=== PATIENT | male | born 1985 | race Caucasian/White ===

== ENCOUNTER 2017-03-24 16:57 | Emergency (ER) | payer BC ==
[2017-03-24 17:17] VITALS: TEMP 97.7
[2017-03-24 17:58] LABS: ADD DIFF? NO; ADD MORPH? NO; ADD SCAN? NO; ATYPICAL LYMPHOCYTE FLAG 10 (0-99); FRAGMENT RBC FLAG 0 (0-99); HEMATOCRIT 43.1 % (40.0-51.0); HEMOGLOBIN 15.2 g/dL (13.7-17.5); LEFT SHIFT FLG 0 (0-99); LIPEMIA HEMOLYSIS FLAG 90 (0-99); MEAN CELL HEMOGLOBIN 32.6 pg (27.9-34.1); MEAN CELL HEMOGLOBIN CONCENTR. 35.3 g/dL (32.4-36.7); MEAN CELL VOLUME 92.5 fL (81.5-99.8); MEAN PLATELET VOLUME 10.5 fL (8.7-11.7); PLATELET CLUMPS FLAG 0 (0-99); PLATELET COUNT 222 10^3/uL (150-400); RED BLOOD CELL COUNT 4.66 10^6/uL (4.40-6.38); RED CELL DISTRIBUTION WIDTH 12.2 % (11.5-15.2)
[2017-03-24 18:15] LABS: ALANINE AMINOTRANSFERASE 39 IU/L (21-72); ALBUMIN 4.3 g/dL (3.5-5.0); ALKALINE PHOSPHATASE 54 IU/L (38-126); ANION GAP 16 mEq/L (8-16); ASPARTATE AMINOTRANSFERASE 27 IU/L (17-59); BILIRUBIN,TOTAL 0.9 mg/dL (0.1-1.4); CALCIUM 9.4 mg/dL (8.5-10.4); CARBON DIOXIDE 27 mEq/l (22-31); CHLORIDE 98 mEq/L (97-110); CREATININE 0.8 mg/dL (0.7-1.3); GLOMERULAR FILTRATION RATE > 60; GLUCOSE 85 mg/dL (70-100); POTASSIUM 3.8 mEq/L (3.5-5.2); SODIUM 141 mEq/L (134-144); TOTAL PROTEIN 7.8 g/dL (6.3-8.2)
--- NOTE | 2017-03-24 18:30 | EDPHY ---
H & P Stated Complaint: Worried about GIB Time Seen by Provider: 03/24/17 17:34 HPI/ROS: This patient complains of upper abdominal pain for the past 2 weeks that is episodic. He describes the intensity has moderate typically 4 to 5/10 when it does occur. He had it shortly prior to arrival but is now nearly resolved and present primarily in the left side upper more than lower belly. The symptoms increased with food particularly with wheat and with wheat he has associated diarrhea. He describes some intermittent burning pain as well and his belly in the same region and a hot feeling and slight lightheadedness. He reports some low-grade subjective fevers associated with him symptoms but has not checked his temperature at home. Also states concern over potential GI bleed but he cannot explain why he is particularly concerned about this. ROS: Constitutional: No fevers chills. No significant fatigue. HEENT: No cold symptoms, sore throat or other Pulmonary: No cough or shortness of breath. Cardiovascular: No chest pain. No heart palpitations. No calf swelling or pain. No pulsatile belly pain GI: No dark tarry stools or bloody stools. No nausea or vomiting. : No testicular pain. No urethral discharge. No dysuria. Musculoskeletal: No complaints Integumentary: No rash or other complaints Endocrine: No polyuria polydipsia or blurred vision 10 point ROS is otherwise negative Source: Patient Exam Limitations: No limitations - Personal History Current Tetanus/Diphtheria Vaccine: No Current Tetanus Diphtheria and Acellular Pertussis (TDAP): No - Medical/Surgical History PMH: Otherwise healthy Hx Asthma: No Hx Chronic Respiratory Disease: No Hx Diabetes: No Hx Cardiac Disease: No Hx Renal Disease: No Hx Cirrhosis: No Hx Alcoholism: No Hx HIV/AIDS: No Hx Splenectomy or Spleen Trauma: No Other PMH: L wrist surgery. Pt states has some undiagnosed inflammatory process for the last year since 2016 - Family History Significant Family History: No pertinent family hx - Social History Smoking Status: Heavy smoker Alcohol Use: Rarely Drug Use: Marijuana (He reports rare marijuana use.) - Physical Exam Exam: General Appearance: Alert, no distress. Eyes: Pupils equal and round no pallor or injection. ENT, Mouth: Mucous membranes moist. Respiratory: There are no retractions, lungs are clear to auscultation. Cardiovascular: Regular rate and rhythm. Gastrointestinal: Normoactive bowel sounds with minimal left upper quadrant tenderness but no splenomegaly : No evidence of inguinal hernia. Testicles are nontender nonswollen. Circumcised penis with no urethral discharge Rectal exam: Small external hemorrhoid without evidence of thrombosis or bleeding stool that is Hemoccult negative. No prostatic swelling is appreciated no prostatic tenderness. Neurological: GCS 15 with no focal deficits appreciated. Skin: Warm and dry, no rashes. Musculoskeletal: Neck is supple nontender. Extremities are symmetrical, full range of motion. Psychiatric: Mildly anxious. Otherwise mood and affect are normal DIFFERENTIAL DIAGNOSIS: After history and physical exam differential diagnosis was considered for food intolerance, gluten intolerance, diverticulitis, gastritis, hepatitis, pancreatitis Constitutional: Initial Vital Signs Temperature (C) 36.5 C 03/24/17 17:14 Heart Rate 50 L 03/24/17 17:14 Respiratory Rate 14 03/24/17 17:14 Blood Pressure 120/80 03/24/17 17:14 O2 Sat (%) 94 03/24/17 17:14 O2 Delivery Mode Room Air Allergies/Adverse Reactions: acetaminophen [From Lortab] Allergy (Verified 03/24/17 17:17) Itching hydrocodone bitartrate [From Lortab] Allergy (Verified 03/24/17 17:17) Itching wheat Allergy (Verified 03/24/17 17:17) Home Medications: Medication Instructions Recorded HYOSCYAMINE SULFATE [LEVSIN-SL] 0.125 - 0.25 mg SL Q6 PRN #20 03/24/17 [email or web address] Medical Decision Making ED Course/Re-evaluation: Patient's symptoms resolved after exam an phlebotomy. I reviewed his normal labs with the patient-normal CBC, comp metabolic panel and Hemoccult negative stool. He has no urinary symptoms. I suspect the symptoms are attributable to gluten sensitivity your intolerance I counseled regarding this. Will provide Levsin for cramping discomfort if needed. I encouraged him to follow up with Gastroenterology if he has any ongoing symptoms despite the treatment plan for further evaluation. - Data Points Laboratory Results: Laboratory Results 03/24/17 17:50 03/24/17 17:50 03/24/17 03/24/17 03/24/17 17:55 17:50 17:50 WBC 4.19 10^3/uL 10^3/uL (3.80-9.50) RBC 4.66 10^6/uL 10^6/uL (4.40-6.38) Hgb 15.2 g/dL g/dL (13.7-17.5) Hct 43.1 % % (40.0-51.0) MCV 92.5 fL fL (81.5-99.8) MCH 32.6 pg pg (27.9-34.1) MCHC 35.3 g/dL g/dL (32.4-36.7) RDW 12.2 % % (11.5-15.2) Plt Count 222 10^3/uL 10^3/uL (150-400) MPV 10.5 fL fL (8.7-11.7) Neut % (Auto) 64.2 % % (39.3-74.2) Lymph % (Auto) 23.2 % % (15.0-45.0) [place] % (Auto) 10.0 % % (4.5-13.0) Eos % (Auto) 1.9 % % (0.6-7.6) Baso % (Auto) 0.7 % % (0.3-1.7) Nucleat RBC Rel Count 0.0 % % (0.0-0.2) Absolute Neuts (auto) 2.69 10^3/uL 10^3/uL (1.70-6.50) Absolute Lymphs (auto) 0.97 10^3/uL L 10^3/uL (1.00-3.00) Absolute Monos (auto) 0.42 10^3/uL 10^3/uL (0.30-0.80) Absolute Eos (auto) 0.08 10^3/uL 10^3/uL (0.03-0.40) Absolute Basos (auto) 0.03 10^3/uL 10^3/uL (0.02-0.10) Absolute Nucleated RBC 0.00 10^3/uL 10^3/uL (0-0.01) Immature Gran % 0.0 % % (0.0-1.1) Immature Gran # 0.00 10^3/uL 10^3/uL (0.00-0.10) Sodium 141 mEq/L mEq/L (134-144) Potassium 3.8 mEq/L mEq/L (3.5-5.2) Chloride 98 mEq/L mEq/L (97-110) Carbon Dioxide 27 mEq/l mEq/l (22-31) Anion Gap 16 mEq/L mEq/L (8-16) BUN 15 mg/dL mg/dL (7-23) Creatinine 0.8 mg/dL mg/dL (0.7-1.3) Estimated GFR > 60 Glucose 85 mg/dL mg/dL (70-100) Calcium 9.4 mg/dL mg/dL (8.5-10.4) Total Bilirubin 0.9 mg/dL mg/dL (0.1-1.4) AST 27 IU/L IU/L (17-59) ALT 39 IU/L IU/L (21-72) Alkaline Phosphatase 54 IU/L IU/L (38-126) Total Protein 7.8 g/dL g/dL (6.3-8.2) Albumin 4.3 g/dL g/dL (3.5-5.0) Stool Occult Bld Scrn NEGATIVE (NEGATIVE) Departure - Departure Disposition: Home, Routine, Self-Care Clinical Impression: Upper abdominal pain Condition: Good Instructions: Acute Abdominal Pain (ED) Additional Instructions: Diagnosis: Upper abdominal pain Your labs today are normal any have no blood in her stool. Plan: Avoid wheat and we related per food products Levsin if needed for abdominal cramping If you have any ongoing symptoms despite the treatment plan, follow up with Dr. Osborn-manager completions. Referrals: Clifford Maloney [Primary Care Provider] - As per Instructions Kal Osborn MD [[facility] [place] Primary Care Provider] - As per Instructions Prescriptions: HYOSCYAMINE SULFATE [LEVSIN-SL] 0.125 - 0.25 mg SL Q6 PRN #20 tab.subl PRN Reason: abdominal cramping
[2017-03-24 18:37] VITALS: BP 118/80; PULSE 78; RESP 18; O2SAT 97
== END 2017-03-24 18:36 | disposition home or self-care (01) ==
LOC: CED 16:57
DX: R10.10 Upper abdominal pain, unspecified (principal); F17.200 Nicotine dependence, unspecified, uncomplicated
CPT/HCPCS: 80053-PO; 82270-PO; 85025-PO

== ENCOUNTER → 2017-06-23 | Outpatient (CLI) | payer BC | LOC: FIMAGING 10:35 | PROVIDERS: ATTEND Family Medicine | DX: M79.642 Pain in left hand (principal); M79.645 Pain in left finger(s) ==

== ENCOUNTER → 2018-09-18 | Outpatient (CLI) | payer BC | LOC: FIMAGING 10:07 | PROVIDERS: ATTEND Family Medicine | DX: M62.08 Separation of muscle (nontraumatic), other site (principal) ==

== ENCOUNTER → 2018-11-25 | Outpatient (CLI) | payer BC | LOC: FLAB 15:07 | PROVIDERS: ATTEND Family Medicine | DX: M54.12 Radiculopathy, cervical region (principal); M25.512 Pain in left shoulder; G25.89 Other specified extrapyramidal and movement disorders ==

== ENCOUNTER 2019-01-06 14:03 | Emergency (ER) | payer BC ==
--- NOTE | 2019-01-06 14:32 | EDPHY ---
General Time Seen by Provider: 01/06/19 14:31 Narrative: CLINICAL IMPRESSION: Anxiety, near syncope, shortness of breath ASSESSMENT/PLAN: Patient is a 33-year-old male with a significant medical history of anxiety who presents with a single episode of near syncope, anxiety and shortness of breath. Patient is afebrile, he is anxious appearing however not toxic- appearing. Vital signs reviewed, mildly tachycardic on arrival. BGL with no evidence of hypoglycemia. CBC with no evidence of anemia or infectious process. BMP with no metabolic abnormalities or evidence of renal insufficiency. ECG with no evidence if bradycardia, sinus pause, SVT or other conduction defect- reviewed by myself and Dr. Coleman. Negative orthostatic hypotension while in the ED. In light of a recent orthopedic surgery, considered pulmonary embolus. Troponin 0. D-dimer was negative. Patient was standing for prolonged period in a warm environment, this is his 1st increased activity since his surgery, I suspect combination of mild deconditioning, underlying anxiety and vasovagal response. There were no findings to suggest sepsis, pulmonary embolism, vascular disease, CHF, arrhythmia (WPW, Bruggada Syndrome, prolonged QT, ventricular arrhythmia, SVT, bradyarrhythmia, or cardiac outflow obstruction- no murmur and not exertional in nature). There were no red flag symptoms, specifically, not exertional onset, no chest pain, low back pain, palpitations, severe headache, focal neurologic deficits, diplopia, ataxia, or dysarthria. I have a low clinical suspicion for other central nervous system etiology. Patient was given IV fluids and Ativan with improvement of his symptoms in the emergency department, he was very reassured by his findings. On re-examination patient with grossly normal neurological exam, able to ambulate without difficulty and with no complaints. Patient is well established with his PCP and will schedule a follow-up appointment. Strict return precautions discussed- patient will return for recurrent syncope, headache, dizziness, chest pain, shortness of breath, abdominal pain or for any other concerning symptom. Patient verbalizes understanding and is in agreement with this plan. DIFFERENTIAL DX: Syncope including but not limited to vasovagal syncope, arrhythmia, dehydration , and blood loss. ED COURSE: 1446: Case discussed with Dr. Coleman 1504: ECG reviewed by myself and Dr. Coleman, nonspecific ST changes. CHIEF COMPLAINT: "Fainting episode" HPI: Patient is a 33-year-old male who is 5 days status post mass removal of his left ring finger performed by Dr. Adamson who presents to the emergency department with complaints of near syncope, anxiety and shortness of breath. Patient reports he has been essentially sedentary since his surgery, walked for short period yesterday. Was out for the 1st time at [facility] today standing in line to check out when he suddenly started to feel very lightheaded, he squatted down and reports nearly fainting. Patient reports some associated anxiety, shortness of breath and nausea at that time. He denies any loss of consciousness. Patient does have a history of syncopal episode when he was younger related to heat exposure. Patient denies any fevers, chills or associated chest pain. He denies any abdominal pain or vomiting. Patient endorses that he has been experiencing some bilateral calf cramping since his surgery, denies any redness or swelling of his lower extremities. No history of clotting disorder, DVT or pulmonary embolism. Patient has been taking Tylenol only since his surgery. He reports very little hand pain, no concerns regarding his surgical site. PMH: Anxiety Pertinent Past Surgical History: Left ring finger open mass removal. Family History: Not contributory Social History: Denies smoking or illicit drug use REVIEW OF SYSTEMS: All other systems negative Constitutional: No fever, no chills, appetite change. Eyes: No discharge, vision change ENT: No sore throat, congestion, ear pain. Cardiovascular: No chest pain, no palpitations. Respiratory: Shortness of breath, no cough. Gastrointestinal: Nausea. No abdominal pain, no vomiting, diarrhea. Genitourinary: No hematuria, dysuria, flank pain, pelvic pain Musculoskeletal: No back pain, joint swelling, joint pain, myalgias. Skin: No rashes, color change. Neurological: Near syncope. No headache or weakness. PHYSICAL EXAM: General Appearance: Alert, anxious however not toxic-appearing. HENT: Normocephalic, atraumatic. Bilateral external ears are normal. Bilateral tympanic membranes are normal with pearly cintron reflex. Nares are clear, mucosa is pink. Oropharynx is clear, uvula is midline. There is no tonsillar enlargement or exudate. The dentition is normal. Eyes: PERRLA, EOMI intact. Conjunctiva pink, no pallor or injection. Neck: Supple, nontender, no lymphadenopathy, no midline pain, FROM, no meningismus. Respiratory: There are no retractions, lungs are clear to auscultation. Cardiac: Mild tachycardia, no murmurs or gallops. Gastrointestinal: Abdomen is soft, nontender, bowel sounds normal, no masses/ hernia, no rigidity, guarding or focal peritoneal findings. Neurological: MENTAL STATUS: Patient is alert and oriented to person, place, time, and situation. Recent and remote memory are intact. Attention and concentration are normal. Found knowledge is appropriate to level of education. Mood and affect normal. SPEECH: Language including naming, repetition, comprehension, and spontaneous speech are normal. No dysarthria or dysphagia. CRANIAL NERVES: II: Visual pearson are full to confrontation. Vision is grossly intact. III, IV, : Pupils are equal, round, reactive to light. Extraocular eye movements are full and without nystagmus. V: Facial sensation is intact to touch symmetrically in all 3 divisions. VII: Face is symmetric at rest with no asymmetry of grimace or evidence of facial weakness. VIII: Hearing is intact bilaterally to finger rub. IX, X: Palate is midline and elevates symmetrically with intact cough/gag. XI: Sternocleidomastoid and trapezius strength is normal. XII: Tongue protrudes midline without atrophy or fasciculations. MOTOR: Normal bulk and tone symmetrically in the upper and lower extremities. Upper extremities: shoulder abduction, elbow flexion, elbow extension, flexion of fingers and finger abduction strength 5/5 bilaterally. Lower extremities: hip flexion, knee flexion and extension, plantar and dorsiflexion of foot, and great toe extension strength 5/5 bilaterally. No pronator drift. SENSORY: Sensation is intact to light touch and symmetric in the UE's in LE's bilaterally. Romberg is negative. COORDINATION: Fine motor and rapid alternating movements are normal. Finger to nose is normal bilaterally. [id number] is normal bilaterally. No abnormal movements noted. There is no tremor at rest or with posture or action. GAIT/STATION: Casual, straightforward gait is normal. Patient can walk on toes and on heels. No gait instability. Skin: Warm, dry, no rashes, no nodules on palpation. Musculoskeletal: Extremities are symmetrical, full range of motion, no tenderness, deformity, swelling, or erythema. Left hand in splint isolating the index finger. Cap refill 2+ distally. Psychiatric: Patient is oriented X 3, he is anxious. MEDICAL DECISION MAKING: Patient was seen independently. Secondary supervising physician at time of evaluation was Dr. Coleman, he did not evaluate this patient. Diagnosis: Near syncope, shortness of breath, anxiety. New, requires workup Summary: See Assessment and Plan for summary of ED visit Clinical lab tests: ordered / reviewed. Independent visualization of images, tracing, or specimens: Yes. Decision to obtain medical records or history from someone other than the patient: No Review / Summarize previous medical records: Yes Discussed patient with another provider: Yes, Dr. Coleman Patient Progress: Stable, discharge. - History Smoking Status: Former smoker - Objective Vital Signs: Initial Vital Signs Temperature (C) 36.5 C 01/06/19 14:21 Heart Rate 77 01/06/19 14:21 Respiratory Rate 16 01/06/19 14:21 Blood Pressure 135/91 H 01/06/19 14:21 O2 Sat (%) 100 01/06/19 14:21 O2 Delivery Mode Room Air Allergies/Adverse Reactions: acetaminophen [From Lortab] Allergy (Verified 03/24/17 17:17) Itching hydrocodone bitartrate [From Lortab] Allergy (Verified 03/24/17 17:17) Itching Home Medications: Medication Instructions Recorded Claritin 01/06/19 Laboratory Results: Laboratory Results 01/06/19 14:50 01/06/19 14:50 01/06/19 01/06/19 01/06/19 15:28 14:50 14:50 WBC RBC Hgb Hct MCV MCH MCHC RDW Plt Count MPV Neut % (Auto) Lymph % (Auto) Real % (Auto) Eos % (Auto) Baso % (Auto) Nucleat RBC Rel Count Absolute Neuts (auto) Absolute Lymphs (auto) Absolute Monos (auto) Absolute Eos (auto) Absolute Basos (auto) Absolute Nucleated RBC Immature Gran % Immature Gran # RBC/WBC/PLT Morphology Platelet Estimate D-Dimer 0.32 ug/mLFEU ug/mLFEU (0.00-0.50) Sodium 135 mEq/L mEq/L (135-145) Potassium 3.7 mEq/L mEq/L (3.5-5.2) Chloride 98 mEq/L mEq/L (97-110) Carbon Dioxide 24 mEq/l mEq/l (22-31) Anion Gap 13 mEq/L mEq/L (6-14) BUN 14 mg/dL mg/dL (7-23) Creatinine 0.9 mg/dL mg/dL (0.7-1.3) Estimated GFR > 60 Glucose 150 mg/dL H mg/dL (70-100) Calcium 9.5 mg/dL mg/dL (8.5-10.4) POC Troponin I 0.00 ng/mL ng/mL (0.00-0.08) 01/06/19 14:50 WBC 4.33 10^3/uL 10^3/uL (3.80-9.50) RBC 4.87 10^6/uL 10^6/uL (4.40-6.38) Hgb 15.5 g/dL g/dL (13.7-17.5) Hct 44.7 % % (40.0-51.0) MCV 91.8 fL fL (81.5-99.8) MCH 31.8 pg pg (27.9-34.1) MCHC 34.7 g/dL g/dL (32.4-36.7) RDW 11.4 % L % (11.5-15.2) Plt Count 262 10^3/uL 10^3/uL (150-400) MPV 10.2 fL fL (8.7-11.7) Neut % (Auto) 76.2 % H % (39.3-74.2) Lymph % (Auto) 10.9 % L % (15.0-45.0) Real % (Auto) 10.4 % % (4.5-13.0) Eos % (Auto) 1.8 % % (0.6-7.6) Baso % (Auto) 0.2 % L % (0.3-1.7) Nucleat RBC Rel Count 0.0 % % (0.0-0.2) Absolute Neuts (auto) 3.30 10^3/uL 10^3/uL (1.70-6.50) Absolute Lymphs (auto) 0.47 10^3/uL L 10^3/uL (1.00-3.00) Absolute Monos (auto) 0.45 10^3/uL 10^3/uL (0.30-0.80) Absolute Eos (auto) 0.08 10^3/uL 10^3/uL (0.03-0.40) Absolute Basos (auto) 0.01 10^3/uL L 10^3/uL (0.02-0.10) Absolute Nucleated RBC 0.00 10^3/uL 10^3/uL (0-0.01) Immature Gran % 0.5 % % (0.0-1.1) Immature Gran # 0.02 10^3/uL 10^3/uL (0.00-0.10) RBC/WBC/PLT Morphology TNP Platelet Estimate TNP D-Dimer Sodium Potassium Chloride Carbon Dioxide Anion Gap BUN Creatinine Estimated GFR Glucose Calcium POC Troponin I Medications Given: Discontinued Medications Sodium Chloride (Ns) 1,000 mls @ 0 mls/hr IV ONCE ONE PRN Reason: Wide Open Stop: 01/06/19 14:47 Last Admin: 01/06/19 15:29 Dose: 1,000 mls Lorazepam (Ativan Injection) 0.5 mg IVP EDNOW ONE Stop: 01/06/19 14:47 Last Admin: 01/06/19 15:30 Dose: 0.5 mg Point of Care Test Results: Chemistry 01/06/19 15:28 POC Troponin I 0.00 ng/mL ng/mL (0.00-0.08) Departure - Departure Disposition: Home, Routine, Self-Care Clinical Impression: Near syncope Condition: Good Instructions: Near Syncope (ED), Anxiety (ED) Additional Instructions: DISCHARGE INSTRUCTIONS FROM YOUR DOCTOR Thank you for visiting our emergency department today. Please keep in mind that discharge from the emergency department does not mean that there is nothing wrong - it simply means that we have not identified an emergency condition that requires further evaluation or treatment in the hospital. You should always plan to follow up with primary care for re-evaluation of your condition in the next 1-2 days. Rest, healthy/regular sleep schedule, push fluids, healthy diet, regular exercise. Attempt to reduce stress. Pursue pleasurable, healthy activities. Surround yourself with loving, supportive, healthy friends and family. Stop smoking as soon as possible. Avoid drugs and alcohol. Discuss counseling with your primary care provider to help work through issues and develop good coping and behavioral strategies for stress reduction and symptom control. Return for increased or unmanageable anxiety, severe depression, for chest pain , shortness of breath, dizziness, fainting, rapid or irregular heart beat, sweating, vomiting, abdominal pain, back pain, tremor, seizure, mental status changes, or for any other new, worsening or worrisome symptoms. People present with illnesses and injuries in different ways, and it is always possible that we have missed something. You may always return for re-evaluation if symptoms worsen or if they are not improving or if you develop new/different symptoms. Again, thank you for choosing our emergency department. We hope that you feel better. Referrals: Galdino Mitchell MD [Primary Care Provider] - 1-2 days without fail
[2019-01-06] MEDS ORDERED: LORazepam 2 MG/ML INJ IVP ONE (14:46)
[2019-01-06] MEDS ORDERED: NS 1,000 ML IV ONE (14:46)
--- NOTE | 2019-01-06 15:06 | CPEKG ---
Test Reason : OPEN Blood Pressure : / mmHG Vent. Rate : 090 BPM Atrial Rate : 092 BPM P-R Int : 154 ms QRS Dur : 091 ms QT Int : 365 ms P-R-T Axes : 054 052 037 degrees QTc Int : [address] eRprobable norearly repol pattern Confirmed by Zac Coleman ([id number]) on 01/06/2019 3:05:06 PM Referred By: Zac Coleman Confirmed By:Zac Coleman
[2019-01-06 15:31] LABS: PLATELET COUNT 262 10^3/uL (150-400)
[2019-01-06 16:21] VITALS: BP 124/77
== END 2019-01-06 16:18 | disposition home or self-care (01) ==
DX: R55 Syncope and collapse (principal); F41.9 Anxiety disorder, unspecified; E86.9 Volume depletion, unspecified; Z98.890 Other specified postprocedural states
CPT/HCPCS: 84484-ER; 96374; J2060

== ENCOUNTER → 2019-02-12 | Outpatient (CLI) | payer BC | LOC: FIMAGING 13:55 → EDSTATUS 14:12 | PROVIDERS: ATTEND Family Medicine | DX: J98.6 Disorders of diaphragm (principal); R07.82 Intercostal pain ==

== ENCOUNTER → 2019-02-24 | Outpatient (CLI) | payer BC ==
[~2019-02-24] MED LIST: IOPAMIDOL (ISOVUE-300) 100 ML BTL ONE
== END ==
LOC: FIMAGING 10:35
PROVIDERS: ATTEND Family Medicine
DX: R91.8 Other nonspecific abnormal finding of lung field (principal); R09.1 Pleurisy
CPT/HCPCS: Q9967

== ENCOUNTER → 2019-03-12 | Day surgery (SDC) | payer BC ==
[~2019-03-12] MED LIST changes: +ALBUTEROL 3 ML DEYVIAL IH ONE; +ALBUTEROL 3 ML DEYVIAL ONE; +EPINEPHrine 1 MG/ML INJ ONE; -IOPAMIDOL (ISOVUE-300) 100 ML BTL ONE; +LIDO/EPI 1% **for epidural** 30 ML SDV ONE; +LIDOCAINE 1% 2 ML INJ ID PRN; +LIDOCAINE 1% 5 ML SDV ONE; +LIDOCAINE 2% JELLY 6 ML TOPICAL SYR ONE; +LIDOCAINE HCL 4% TOPICAL SOLN 50ML ONE; +MIDAZOLAM 2 MG/2 ML VIAL ONE; +NS 500 ML IV ONE; +fentaNYL 100 MCG/2 ML INJ ONE
--- NOTE | 2019-03-12 07:11 | PDHPUP ---
History & Physical Update H&P update statement: This history and physical update is based on an assessment of the patient which was completed after admission or registration (within 24 hours), but prior to the surgery/procedure. H&P update: H&P reviewed & patient examined, no change in patient's condition since H&P completed
--- NOTE | 2019-03-12 07:11 | PDPROPOC ---
Sedation Plan of Care Sedation Plan of Care: vital signs stable, mental status noted, patient educated of risks, benefits, alternatives, patient can tolerate sedation ASA Classification: ASA 2 Planned drugs: fentanyl, midazolam Mallampati Score: Class 2 Mallampati Reference Image:
== END | disposition home or self-care (01) ==
LOC: FSGY 06:32
PROVIDERS: ATTEND Internal Medicine Critical Care Medicine
DX: R91.1 Solitary pulmonary nodule (principal); Z53.09 Procedure and treatment not carried out because of other contraindication; Z87.891 Personal history of nicotine dependence
CPT/HCPCS: J0171; J2250; J3010; J7613

== ENCOUNTER 2019-03-18 12:21 | Day surgery (SDC) | payer BC | END 2019-03-18 16:41 | disposition home or self-care (01) | LOC: FSGY 12:21 ==